=== PATIENT | female | born 1940 | race Caucasian/White ===

== ENCOUNTER 2017-11-26 13:07 | Day surgery (SDC) | payer MEDICARE, BC ==
[2017-11-26 13:48] VITALS: RESP 16; O2SAT 99
[2017-11-26] MEDS ORDERED: TRIAMCINOLONE ACETONIDE 40 MG/ML SUS ONE (13:52)
[2017-11-26] MEDS ORDERED: BUPIVACAINE HCL 0.25% MPF 30 ML SOL INFIL ONE (13:52)
[2017-11-26 14:43] VITALS: BP 141/65; PULSE 56; TEMP 99
== END 2017-11-26 14:35 | disposition home or self-care (01) | DRG 554 ==
LOC: SURG 13:07
PROVIDERS: ATTEND Nurse Anesthetist, Certified Registered
DX: M12.9 Arthropathy, unspecified (principal)
CPT/HCPCS: J3300

== ENCOUNTER 2018-07-08 10:11 | Day surgery (SDC) | payer MEDICARE, BC ==
[2018-07-08 11:09] VITALS: RESP 16
[2018-07-08] MEDS ORDERED: BUPIVACAINE HCL 0.25% MPF 30 ML SOL INFIL ONE (11:25)
[2018-07-08] MEDS: TRIAMCINOLONE ACETONIDE 40 MG/ML SUS ONE ×4 (11:30→11:41)
[2018-07-08 11:54] VITALS: BP 148/52; PULSE 56; TEMP 97.9; O2SAT 98
== END 2018-07-08 12:18 | disposition home or self-care (01) | DRG 554 ==
LOC: SURG 10:11
PROVIDERS: ATTEND Nurse Anesthetist, Certified Registered
DX: M12.9 Arthropathy, unspecified (principal)
CPT/HCPCS: J3300

== ENCOUNTER 2018-08-13 13:07 | Day surgery (SDC) | payer MEDICARE, BC ==
[2018-08-13 13:34] VITALS: RESP 16
[2018-08-13] MEDS ORDERED: BUPIVACAINE HCL 0.25% MPF 30 ML SOL INFIL ONE (14:16)
[2018-08-13] MEDS: TRIAMCINOLONE ACETONIDE 40 MG/ML SUS ONE ×3 (14:29→14:38)
[2018-08-13 15:04] VITALS: BP 162/57; PULSE 61; TEMP 97.4; O2SAT 99
== END 2018-08-13 15:18 | disposition home or self-care (01) | DRG 554 ==
LOC: SURG 13:07
PROVIDERS: ATTEND Nurse Anesthetist, Certified Registered
DX: M12.9 Arthropathy, unspecified (principal)
CPT/HCPCS: J3300